=== PATIENT | male | born 1975 | race Caucasian/White ===

== ENCOUNTER 2024-06-23 20:49 | Emergency (ER) | payer OTHER | END 2024-06-23 22:13 | disposition home or self-care (01) | LOC: JD.ED 20:49 | DX: S06.0X1A Concussion with loss of consciousness of 30 minutes or less, initial encounter (principal); S01.01XA Laceration without foreign body of scalp, initial encounter; F10.120 Alcohol abuse with intoxication, uncomplicated; W00.0XXA Fall on same level due to ice and snow, initial encounter; Y90.9 Presence of alcohol in blood, level not specified | CPT/HCPCS: 12004; 70450; 70450-26; 71045; 71045-26; 99284 ==